=== PATIENT | male | born 1935 | race Caucasian/White ===

== ENCOUNTER 2024-06-22 14:40 | Emergency (ER) | payer MEDICARE, OTHER ==
[~2024-06-22] VITALS: Ht 182.9 cm; Wt 81.6 kg
[2024-06-22] MEDS ORDERED: ASPI81TA31 PO (15:17)
[2024-06-22] MEDS ORDERED: CLOP75TA15 PO (15:17)
[2024-06-22 16:09] VITALS: BP 163/72; O2SAT 97
== END 2024-06-22 16:11 | disposition home or self-care (01) ==
LOC: ER 14:40
DX: L98.9 Disorder of the skin and subcutaneous tissue, unspecified (principal); Z79.02 Long term (current) use of antithrombotics/antiplatelets; Z79.82 Long term (current) use of aspirin
CPT/HCPCS: A4606; A4663